=== PATIENT | female | born 1985 ===

== ENCOUNTER 2016-09-24 13:31 | Inpatient (IN) | payer BC ==
[~2016-09-24] VITALS: Ht 168.9 cm; Wt 83.2 kg
[2016-11-06] VITALS (17 sets, daily range): BP systolic 105–129; BP diastolic 62–83; PULSE 66–92; TEMP 97.5–98.1
[2016-11-06] MEDS ORDERED: PRENATAL MVI (10:26)
[2016-11-06] MEDS ORDERED: ZYRTEC 10MG10 MG PO (10:28)
[2016-11-06 10:43] LABS: BASO % 0.3 % (0.0-2.0); EOS # 0.2 (0.0-0.7); EOS % 2.3 % (0-4.0); GRAN # 6.8 (1.4-6.5); GRAN % 67.4 % (42.2-75.2); HEMATOCRIT 38.4 % (37.0-47.0); HEMOGLOBIN 12.8 g/dl (12.5-16.0); LYMPH # 2.3 (1.2-3.4); LYMPH % 22.8 % (20.0-51.0); MEAN CELL VOLUME 86 fl (80.0-100.0); MEAN CORPUSCULAR HEMOGLOBIN 29 pg (27.0-31.0); MEAN CORPUSCULAR HGB CONC 33 g/dl (33.0-37.0); MEAN PLATELET VOLUME 10.6 fl (7.4-10.4); MONO # 0.6 (0.1-0.6); MONO % 6.3 % (1.7-9.3); PLATELET COUNT 255 K/mm3 (130-400); RED BLOOD COUNT 4.48 M/mm3 (4.10-5.30); REDCELL DISTRIBUTION WIDTH-CV 14.2 % (11.5-14.5)
[2016-11-07 01:59] VITALS: BP 18/80; PULSE 62; TEMP 97.8
[2016-11-07 05:30] VITALS: BP 102/62; PULSE 65; TEMP 97.7
[2016-11-07] MEDS ORDERED: PERCOCET 325 MG1 TA2 PO (06:34)
[2016-11-07] MEDS ORDERED: IBU600 MG PO (06:34)
[2016-11-07 07:10] LABS: BASO % 0.4 % (0.0-2.0); EOS # 0.3 (0.0-0.7); EOS % 2.5 % (0-4.0); GRAN # 6.9 (1.4-6.5); GRAN % 66.7 % (42.2-75.2); LYMPH # 2.3 (1.2-3.4); LYMPH % 21.9 % (20.0-51.0); MEAN CELL VOLUME 88 fl (80.0-100.0); MEAN CORPUSCULAR HGB CONC 32 g/dl (33.0-37.0); MEAN PLATELET VOLUME 10.1 fl (7.4-10.4); MONO # 0.8 (0.1-0.6); MONO % 7.9 % (1.7-9.3); PLATELET COUNT 212 K/mm3 (130-400); RED BLOOD COUNT 4.14 M/mm3 (4.10-5.30); REDCELL DISTRIBUTION WIDTH-CV 14.4 % (11.5-14.5); WHITE BLOOD COUNT 10.3 K/mm3 (4.8-10.8)
[2016-11-07 07:19] LABS: HEMATOCRIT 36.6 % (37.0-47.0); HEMOGLOBIN 11.8 g/dl (12.5-16.0); MEAN CORPUSCULAR HEMOGLOBIN 29 pg (27.0-31.0)
[2016-11-07 08:35] VITALS: BP 95/61; PULSE 58; TEMP 97.7
[2016-11-07 15:00] VITALS: BP 98/63; PULSE 59; TEMP 98
[2016-11-07 20:30] VITALS: BP 124/71; PULSE 63; TEMP 97.7
[2016-11-08 07:30] VITALS: BP 104/75; PULSE 63; TEMP 97.5
[2016-11-08 16:28] VITALS: BP 108/75; PULSE 77
[2016-11-08 22:05] VITALS: BP 102/71; PULSE 76; TEMP 98.4
[2016-11-09 07:19] VITALS: BP 115/77; PULSE 72; TEMP 97.7
== END 2016-11-09 15:05 | disposition home or self-care (01) | DRG 765 ==
LOC: OB 11-06 07:36 → EDSTATUS 11-11 07:34 → LDRO 11-11 13:31
PROVIDERS: Obstetrics & Gynecology
PROC: 10D00Z1 Extraction of Products of Conception, Low, Open Approach (ICD-10-PCS; principal; 2016-11-06)
DX: O32.1XX0 Maternal care for breech presentation, not applicable or unspecified (principal); O36.0130 Maternal care for anti-D [Rh] antibodies, third trimester, not applicable or unspecified; O48.0 Post-term pregnancy; O99.820 Streptococcus B carrier state complicating pregnancy; O69.81X0 Labor and delivery complicated by cord around neck, without compression, not applicable or unspecified; Z3A.40 40 weeks gestation of pregnancy; Z37.0 Single live birth
CPT/HCPCS: J0690; J1885; J2175; J2270; J2370; J2405; J2590; J2765; J7120

== ENCOUNTER → 2020-03-10 | Outpatient (CLI) | payer BC ==
[~2020-03-10] MED LIST: IBU600 MG PO; IBU800 M1 PO; PERCOCET 325 MG1 TA2 PO; PRENATAL MVI; ZYRTEC 10MG10 MG PO
== END ==
LOC: ZCOL.LAB 08:00
DX: Z20.828 Contact with and (suspected) exposure to other viral communicable diseases (principal)

== ENCOUNTER 2020-03-14 09:33 | Inpatient (IN) | payer BC ==
[2020-03-14] VITALS (18 sets, daily range): BP systolic 102–126; BP diastolic 57–90; PULSE 64–93; TEMP 97.7–98.6
[~2020-03-14] VITALS: Ht 167.6 cm; Wt 84.1 kg
[~2020-03-14 09:33] MED LIST changes: -IBU800 M1 PO
--- NOTE | 2020-03-14 09:40 | NUR ---
Patient ambulatory to 220 and oriented to room. Lucille RN at bedside to admit patient for repeat .
[2020-03-14 10:33] LABS: BASO % 0.4 % (0.0-2.0); EOS # 0.2 (0.0-0.7); EOS % 1.5 % (0-4.0); GRAN # 6.8 (1.4-6.5); GRAN % 68.2 % (42.2-75.2); HEMATOCRIT 37.3 % (37.0-47.0); HEMOGLOBIN 12.5 g/dl (12.5-16.0); LYMPH # 2.3 (1.2-3.4); MEAN CELL VOLUME 85 fl (80.0-100.0); MEAN CORPUSCULAR HEMOGLOBIN 29 pg (27.0-31.0); MEAN CORPUSCULAR HGB CONC 34 g/dl (33.0-37.0); MEAN PLATELET VOLUME 10.4 fl (7.4-10.4); MONO # 0.6 (0.1-0.6); MONO % 6.3 % (1.7-9.3); PLATELET COUNT 239 K/mm3 (130-400); RED BLOOD COUNT 4.38 M/mm3 (4.10-5.30); REDCELL DISTRIBUTION WIDTH-CV 13.9 % (11.5-14.5)
[2020-03-15 03:50] VITALS: BP 103/63; PULSE 71; TEMP 97.7
[2020-03-15 08:05] VITALS: BP 103/76; PULSE 71; TEMP 98.1
[2020-03-15] MEDS ORDERED: PERCOCET 325 MG1 TA2 PO (10:00)
[2020-03-15] MEDS ORDERED: IBU800 M1 PO (10:00)
[2020-03-15 11:03] VITALS: BP 123/80; PULSE 88; TEMP 97.8
[2020-03-15 16:42] VITALS: BP 100/63; PULSE 66; TEMP 97.9
[2020-03-15 19:45] VITALS: BP 115/86; PULSE 107; TEMP 98.2
[2020-03-16 08:14] VITALS: BP 106/72; PULSE 71; TEMP 97.5
== END 2020-03-16 10:15 | disposition home or self-care (01) | DRG 788 ==
LOC: OB 09:33
PROVIDERS: ADMIT Student in an Organized Health Care Education/Training Program
PROC: 10D00Z1 Extraction of Products of Conception, Low, Open Approach (ICD-10-PCS; principal; 2020-03-14)
DX: O34.211 Maternal care for low transverse scar from previous cesarean delivery (principal); O99.284 Endocrine, nutritional and metabolic diseases complicating childbirth; O26.893 Other specified pregnancy related conditions, third trimester; O99.824 Streptococcus B carrier state complicating childbirth; E03.9 Hypothyroidism, unspecified; Z3A.39 39 weeks gestation of pregnancy; Z37.0 Single live birth; Z67.41 Type O blood, Rh negative
CPT/HCPCS: J0690; J1885; J2405; J2590; J7120